=== PATIENT | female | born 1950 | race Caucasian/White ===

== ENCOUNTER → 2016-10-26 | Day surgery (SDC) | payer MEDICARE ==
[~2016-10-26] MED LIST: ABIL2TAB2 PO; ALPH0.1S EACH EYE; ATOR1TAB18 PO; CALC600T25 PO; CYCLOPENTOLATE HCL 1% OPHT SOLN 2 ML BTL ONE; DIAZ5TAB PO; FLURBIPROFEN 0.03% OPHT SOLN 2.5 ML BTL ONE; GLIP5TAB8 PO; GLUCLIQ PO; HYALURONIDASE/LIDOCAINE/EPINEPHRINE/BUPIVACAINE 6 ML SYR ONE; HYDR12.56 PO; LEXA10TA PO; LIDOCAINE HCL 1% 30 ML VIAL ONE; LISI-519 PO; LYRI75CA PO; METH500T3 PO; NEOM0.1S4 EACH EYE; PHENYLEPHRINE HCL 10% OPTH SOLN 5 ML BTL ONE; PROPARACAINE HCL 0.5% OPHT SOLN 15 ML BTL ONE; PROPOFOL 200 MG/20 ML AMP ONE; PROT40TA PO; SODIUM CHLORID 0.9% 500 ML INJ 500 ML ONE; TOBRAMYCIN/DEXAMETHASONE OPTH OINT 3.5 GM TUBE ONE; TRIL150T PO; TRIL300T PO; TROPICAMIDE 1% OPHT SOLN 15 ML BTL ONE
[2016-10-26 09:05] VITALS: PULSE 63
[2016-10-26 09:52] VITALS: TEMP 97.7
[2016-10-26 10:10] VITALS: BP 157/74; PULSE 74; RESP 16; O2SAT 97
--- NOTE | 2016-10-27 17:52 | MP ---
cc: WILLIAN PACE MD DATE OF SURGERY: 10/26/2016 [facility] NUMBER: [id number] PREOPERATIVE DIAGNOSIS Visually significant cataract right eye. POSTOPERATIVE DIAGNOSIS Visually significant cataract right eye. OPERATION Phacoemulsification with posterior chamber lens implantation, right eye. SURGEON Willian Pace MD ANESTHESIA Retrobulbar with MAC. COMPLICATIONS None PROCEDURE After informed consent was obtained, the patient was brought into the operative suite and placed on appropriate monitors by the Anesthesia Service. The patient had received a prior retrobulbar injection of local anesthetic by the Anesthesia Service in the holding area. The patient's operative eye was then prepped and draped in the usual sterile fashion. A wire lid speculum was placed. A paracentesis incision was made in the peripheral cornea with a 1 mm hebert keratome. The anterior chamber was filled with viscoelastic. The anterior chamber was then entered through a stepped, clear corneal incision using a sharp 3 mm hebert keratome. A circular tear capsulorrhexis was then made with a bent needle cystitome. Following hydrodissection of the lens nucleus with balanced saline, phacoemulsification of the nucleus was performed using a modified chopping technique. The remaining cortex was removed with irrigation/aspiration. The prior two procedures were both performed using the handpieces of the [employer] phaco unit. The capsular bag was then filled with viscoelastic. The intraocular lens was then injected into the capsular bag and positioned. The type of intraocular lens and its power can be found elsewhere in this chart. The remaining viscoelastic was then removed from the anterior chamber with the IA handpiece. The anterior chamber was reformed with balanced saline. The wound was then closed securely with stromal hydration. It was found to be watertight to an intraocular pressure of at least 30 mmHg by palpation. A small amount of balanced salt solution was then removed through the paracentesis site and the intraocular pressure at the end of the case was approximately 20 by palpation. All drapes were then removed. TobraDex ointment was then placed in the eye, which was closed beneath a semi-pressure patch dressing. The patient tolerated this procedure well and left the operating room awake and alert. The patient is to follow-up in my office in the morning. MD MICHELE Boo/LAKESHA /9:47 AM /5:47 PM
== END | disposition home or self-care (01) ==
LOC: PHSDC 06:56
PROVIDERS: ATTEND Optometrist Occupational Vision
DX: H25.811 Combined forms of age-related cataract, right eye (principal); E11.9 Type 2 diabetes mellitus without complications; Z79.84 Long term (current) use of oral hypoglycemic drugs; Z79.899 Other long term (current) drug therapy
CPT/HCPCS: 00142; 66984; J7040; V2632

== ENCOUNTER → 2016-11-30 | Day surgery (SDC) | payer MEDICARE, OTHER ==
[~2016-11-30] VITALS: Ht 175.3 cm; Wt 81.8 kg
[~2016-11-30] MED LIST changes: -GLUCLIQ PO; -LIDOCAINE HCL 1% 30 ML VIAL ONE; +LIDOCAINE HCL 1% PF 30 ML VIAL ONE; -METH500T3 PO; -PROT40TA PO; -TRIL150T PO; -TRIL300T PO
[2016-11-30 08:40] VITALS: PULSE 52
[2016-11-30 10:50] VITALS: BP 142/78; PULSE 62; RESP 16; TEMP 97.3; O2SAT 98
--- NOTE | 2016-11-30 13:38 | MP ---
cc: WILLIAN PACE M.D. [facility] #[id number] DATE OF SURGERY 11/30/2016 PREOPERATIVE DIAGNOSIS Visually significant cataract left eye. POSTOPERATIVE DIAGNOSIS Visually significant cataract left eye. OPERATION Phacoemulsification with posterior chamber lens implantation, left eye. SURGEON Willian Pace MD ANESTHESIA Retrobulbar with MAC. COMPLICATIONS None PROCEDURE After informed consent was obtained, the patient was brought into the operative suite and placed on appropriate monitors by the Anesthesia Service. The patient had received a prior retrobulbar injection of local anesthetic by the Anesthesia Service in the holding area. The patient's operative eye was then prepped and draped in the usual sterile fashion. A wire lid speculum was placed. A paracentesis incision was made in the peripheral cornea with a 1 mm hebert keratome. The anterior chamber was filled with viscoelastic. The anterior chamber was then entered through a stepped, clear corneal incision using a sharp 3 mm hebert keratome. A circular tear capsulorrhexis was then made with a bent needle cystitome. Following hydrodissection of the lens nucleus with balanced saline, phacoemulsification of the nucleus was performed using a modified chopping technique. The remaining cortex was removed with irrigation/aspiration. The prior two procedures were both performed using the handpieces of the [employer] phaco unit. The capsular bag was then filled with viscoelastic. The intraocular lens was then injected into the capsular bag and positioned. The type of intraocular lens and its power can be found elsewhere in this chart. The remaining viscoelastic was then removed from the anterior chamber with the IA handpiece. The anterior chamber was reformed with balanced saline. The wound was then closed securely with stromal hydration. It was found to be watertight to an intraocular pressure of at least 30 mmHg by palpation. A small amount of balanced salt solution was then removed through the paracentesis site and the intraocular pressure at the end of the case was approximately 20 by palpation. All drapes were then removed. TobraDex ointment was then placed in the eye, which was closed beneath a semi-pressure patch dressing. The patient tolerated this procedure well and left the operating room awake and alert. The patient is to follow-up in my office in the morning. MD MICHELE Boo/VANESSA /9:50 AM /1:32 PM
== END | disposition home or self-care (01) ==
LOC: PHSDC 07:06
PROVIDERS: ATTEND Optometrist Occupational Vision
DX: H25.812 Combined forms of age-related cataract, left eye (principal)
CPT/HCPCS: 00142; 66984; J7040; V2632